=== PATIENT | male | born 1955 | race Hispanic/Latino ===

== ENCOUNTER 2017-10-19 06:05 | Day surgery (SDC) | payer OTHER ==
[2017-10-12 14:18] VITALS: BMI 27.8
[2017-10-19] MEDS ORDERED: EPINEPHrine 1 mg/ml (1:1000) Inj ONE ×2 (07:15→08:23)
[2017-10-19] MEDS ORDERED: Lidocaine 2% MPF (5 ml) Inj ONE (07:16)
[2017-10-19] MEDS ORDERED: Lidocaine 2% Jelly (5 ml) TOP ONE (07:16)
--- NOTE | 2017-10-19 07:44 | CP.SDSHP ---
Same Day Surgery H & P - History Proposed Procedure: Flexible bronchoscopy. Pre-Op Diagnosis: Right middle lobe infiltrate - Previous Medical/Surgical History Cardiac: Arrhythmia Pulmonary: Other (hemoptysis x 1) Misc: Other (Non-alcoholic fatty liver disease. Remote PUD.) Pain: 0. No Pain Previous Surgical History: AP, tonsillectomy, cholecystectomy - Allergies Allergies: Allergies No Known Allergies Allergy (Verified 10/12/17 14:18) - Physical Exam Vital Signs: Vital Signs 10/19/17 06:33 Pulse Rate 70 Mental Status: Alert & Oriented x3 Neuro: WNL Heart: WNL Lungs: WNL GI: WNL Social History: Alcohol (social) - Impression Impression: RML infiltrate, rule out malignancy Pt. Evaluated Today:Candidate for Anesthesia & Procedure: Yes - Date & Time Date: 10/19/17 Time: 07:47 Short Stay Discharge - Short Stay Discharge Admitting Diagnosis/Reason for Visit: R91.8 Disposition: HOME/ ROUTINE Referrals: Louis Kent MD [Primary Care Provider] -
[2017-10-19] MEDS ORDERED: Midazolam 2 MG/2 ML VIAL ONE (07:54)
[2017-10-19] MEDS ORDERED: Propofol 10 mg/ml Inj (20 ML) ONE (07:55)
[2017-10-19] MEDS ORDERED: Lactated Ringer's 1,000 ML IV ONE ×3 (08:00→08:46)
[2017-10-19] MEDS ORDERED: Lidocaine 2% GEL TOP ONE (08:05)
[2017-10-19] MEDS ORDERED: Lidocaine 2% MPF (5 ml) Inj INJ ONE (08:05)
[2017-10-19] MEDS ORDERED: EPINEPHrine 1 mg/ml (1:1000) Inj IV ONE (08:05)
[2017-10-19] MEDS ORDERED: Lidocaine 2% Jelly (30 ml) ONE (08:23)
--- NOTE | 2017-10-19 10:01 | RAD ---
Date of service: 10/19/2017 HISTORY: s/p bronchoscopy COMPARISON: No prior. FINDINGS: LUNGS: Right basilar opacity, possible pneumonia. Rule out neoplasm. Followup to clearing advised. No other abnormal opacity elsewhere. PLEURA: No significant pleural effusion identified, no pneumothorax apparent. CARDIOVASCULAR: Normal. OSSEOUS STRUCTURES: No significant abnormalities. VISUALIZED UPPER ABDOMEN: Normal. OTHER FINDINGS: None. IMPRESSION: Right basilar opacity. Rule out pneumonia. Followup to clearing advised to exclude underlying neoplasm.
[2017-10-19 10:26] VITALS: O2SAT 95
[2017-10-19 10:45] VITALS: RESP 18
--- NOTE | 2017-10-19 10:52 | CP.SDSHP ---
Same Day Surgery H & P - Allergies Allergies: Allergies No Known Allergies Allergy (Verified 10/12/17 14:18) - Physical Exam Vital Signs: Vital Signs 10/19/17 10/19/17 10/19/17 06:33 08:46 09:00 Temperature 97 F L 97.2 F L Pulse Rate 70 78 79 Respiratory 20 20 Rate Blood Pressure 123/71 130/70 O2 Sat by Pulse 100 100 Oximetry 10/19/17 10/19/17 10/19/17 09:15 09:30 09:45 Temperature 97.4 F L Pulse Rate 68 65 67 Respiratory 20 20 20 Rate Blood Pressure 120/68 129/80 128/80 O2 Sat by Pulse 99 99 96 Oximetry 10/19/17 10/19/17 10/19/17 10:00 10:20 10:35 Temperature 98.1 F 98.3 F Pulse Rate 65 67 67 Respiratory 20 20 18 Rate Blood Pressure 131/83 137/83 141/83 O2 Sat by Pulse 95 95 95 Oximetry 10/19/17 10:44 Temperature Pulse Rate Respiratory Rate Blood Pressure O2 Sat by Pulse 95 Oximetry Short Stay Discharge - Short Stay Discharge Admitting Diagnosis/Reason for Visit: R91.8 Disposition: HOME/ ROUTINE Referrals: Louis Kent MD [Primary Care Provider] - Follow-up: Call doctor's office on Sunday Additional Instructions (Diet, Activity): regular activities. Regular diet. Progress Note/Discharge Note with Instructions: Tolerated flexible bronchoscopy w/o incident. Feeling well post procedure. No hemoptysis, no SOB. Post CXR shows same findings as pre (RML infiltrate), no pneumopthorax.
--- NOTE | 2017-10-19 11:12 | RAD ---
Date of service: 10/19/2017 PROCEDURE: Intraoperative Fluoroscopy. HISTORY: BRONCH FINDINGS: Fluoroscopic assistance was provided for bronchoscopy. Please refer to the operative report from CHRISTIANA Harmon. Total fluoroscopic time (continuous mode) utilized during the procedure 89.7 (seconds). Total exam DLP: 10.54 (mGy).
[2017-10-19 11:49] VITALS: BP 136/87; PULSE 79; TEMP 98.5
== END 2017-10-19 11:56 | disposition home or self-care (01) ==
LOC: H.OPSURG 06:05 → EDUNIT# 07:45 → H.OPSURG 11:56
PROVIDERS: ATTEND Internal Medicine Pulmonary Disease
DX: C34.2 Malignant neoplasm of middle lobe, bronchus or lung (principal); R04.2 Hemoptysis; R91.8 Other nonspecific abnormal finding of lung field; Z90.49 Acquired absence of other specified parts of digestive tract
CPT/HCPCS: 31623; 31628; 71045; 87015; 87070; 87101; 87116; 87206; 88104; 88305; J0171; J2001; J2250; J2704; J3010; J7120